=== PATIENT | male | born 1955 | race Caucasian/White ===

== ENCOUNTER 2016-12-03 08:43 | Day surgery (SDC) | payer BC ==
[~2016-12-03] VITALS: Ht 170.2 cm; Wt 83.9 kg
[~2016-12-03 08:43] MED LIST: CIPR-173 PO; CRAN1TAB2 PO; DOCU1CAP31 PO; LORA1TAB12 PO; NORT25CA PO; PERCOT PO; SIMV-8 PO; TAMS0.4C36 PO; VENL150T4 PO
[2016-12-03] MEDS ORDERED: ceFAZolin 1GM/50ML D5W 100 ML IV ONE (09:55)
[2016-12-03] MEDS ORDERED: fentaNYL CITRATE 100 MCG/2 ML VL ONE ×2 (10:42→12:05)
[2016-12-03] MEDS ORDERED: MIDAZOLAM HCL 1MG/1ML-2 ML VIAL ONE (12:05)
[2016-12-03] MEDS ORDERED: GLYCOPYRROLATE 0.2 MG/ML 1ML VIAL IV ONE (12:06)
[2016-12-03] MEDS ORDERED: PROPOFOL 10 MG/ML 20 ML IV ONE (12:06)
[2016-12-03] MEDS ORDERED: ONDANSETRON HCL 4 MG/2 ML VIAL IV ONE ×2 (12:06→13:15)
[2016-12-03] MEDS ORDERED: DEXAMETHASONE SOD PHOS 10MG/1ML VIAL INJ IV ONE (12:06)
[2016-12-03] MEDS ORDERED: HYDROmorphone HCL 2 MG/ML VL IV PRN (13:15)
[2016-12-03 14:22] VITALS: BP 126/68
== END 2016-12-03 14:33 | disposition home or self-care (01) ==
LOC: SUR 08:43
PROVIDERS: ATTEND Urology
DX: N20.1 Calculus of ureter (principal); E78.00 Pure hypercholesterolemia, unspecified
CPT/HCPCS: 50590; J0690; J1100; J2250; J2405; J2704; J3010

== ENCOUNTER 2016-12-13 12:02 | Inpatient (IN) | payer BC ==
[~2016-12-13] VITALS: Ht 170.2 cm; Wt 80.3 kg
[2016-12-13] MEDS ORDERED: SODIUM CHLORIDE 0.9% 1,000 ML IV ONE (12:30)
[2016-12-13] MEDS ORDERED: HYDROmorphone HCL 2 MG/ML VL IV ONE (12:30)
[2016-12-13] MEDS ORDERED: KETOROLAC TROMETH 30 MG/ML 1ML VIAL IV ONE (12:30)
[2016-12-13] MEDS ORDERED: ONDANSETRON HCL 4 MG/2 ML VIAL IV ONE (12:30)
[2016-12-13 12:55] LABS: Basophils # (auto) 0 uL; Basophils % (auto) 0.2 % (0.0-2.0); CONDITION Y; Eosinophils # (auto) 0.1 uL; Eosinophils % (auto) 1.5 % (0.0-7.0); Hemoglobin 14.8 g/dL (13.5-17.5); Lymphocytes # (auto) 1.6 uL; Lymphocytes % (auto) 16.3 % (10.0-50.0); Mean Corpuscular Hemoglobin 30.9 pg (28.0-32.0); Mean Corpuscular Hgb Conc. 34.3 g/dL (32.0-36.0); Mean Platelet Volume 7.7 fL (7.4-10.4); Monocytes # (auto) 0.7 uL; Monocytes % (auto) 7.1 % (0.0-12.0); Neutrophils # (auto) 7.2 uL; Neutrophils % (auto) 74.9 % (37.0-80.0); Platelet Count (auto) 311 10^3/uL (140-450); White Blood Cell 9.6 10^3/uL (4.4-10.8)
[2016-12-13 13:28] LABS: Albumin 3.7 g/dL (3.4-5.0); BUN/Creatinine Ratio 9.6; Calcium 8.4 mg/dL (8.5-10.1)
[2016-12-13 13:31] LABS: Bilirubin, Total 0.5 mg/dL (0.2-1.0); Total Protein 7.2 g/dL (6.4-8.2)
[2016-12-13] MEDS ORDERED: PROMETHAZINE HCL 25 MG/ML 1ML IV PRN (15:30)
[2016-12-13] MEDS ORDERED: cefTRIAXone 1GM/50ML D5W 50 ML IV ONE (15:30)
[2016-12-13] MEDS ORDERED: TEMAZEPAM 15 MG CAP PO PRN (15:30)
[2016-12-13] MEDS ORDERED: LORazepam 0.5 MG TAB PO PRN (15:30)
[2016-12-13] MEDS ORDERED: ACETAMINOPHEN 500 MG TAB PO PRN (15:30)
[2016-12-13] MEDS: SODIUM CHLORIDE 0.9% 1,000 ML IV SCH (15:51)
[2016-12-13] MEDS: MORPHINE SULFATE 4 MG/ML SYRG IV PRN (19:02)
[2016-12-13] MEDS: HYDROcodone-ACET 5/325MG TAB PO PRN (21:25)
[2016-12-13 22:00] VITALS: BP 113/71
[2016-12-14] MEDS ORDERED: MANNITOL FTV 25% 12.5 GM/50 ML 50 ML IV ONE (00:15)
[2016-12-14] MEDS: SODIUM CHLORIDE 0.9% 1,000 ML IV SCH ×3 (00:22→21:04)
[2016-12-14] MEDS: MORPHINE SULFATE 4 MG/ML SYRG IV PRN ×2 (01:10→09:00)
[2016-12-14 05:00] VITALS: BP 128/67
[2016-12-14 08:00] VITALS: BP 116/78
[2016-12-14] MEDS: cefTRIAXone 1GM/50ML D5W 50 ML IV SCH (08:59)
[2016-12-14 11:54] VITALS: BP 118/73
[2016-12-14 17:00] VITALS: BP 113/72
[2016-12-14 20:00] VITALS: BP 133/78
[2016-12-14] MEDS: HYDROmorphone HCL 2 MG/ML VL IV PRN (21:03)
[2016-12-14 22:00] VITALS: BP 133/78
[2016-12-15] MEDS: HYDROcodone-ACET 5/325MG TAB PO PRN (00:06)
[2016-12-15] MEDS: SODIUM CHLORIDE 0.9% 1,000 ML IV SCH ×2 (01:43→18:31)
[2016-12-15] MEDS: HYDROmorphone HCL 2 MG/ML VL IV PRN ×5 (01:52→20:33)
[2016-12-15 04:38] LABS: Urine RBC None Seen /hpf (0 - 3)
[2016-12-15 04:58] LABS: Urine Bilirubin Negative (Negative); Urine Blood Negative /uL (Negative); Urine Color Yellow (Yellow); Urine Glucose Normal (Normal); Urine Ketone Negative (Negative); Urine Nitrite Negative (Negative); Urine Urobilinogen Normal (Negative); Urine pH 6.5 (5.0-8.0)
[2016-12-15 05:00] VITALS: BP 130/86
[2016-12-15 06:35] LABS: INR 0.95 (0.9-1.15); Partial Thromboplastin Time 25.9 sec (22.64-33.71); Prothrombin Time 10.4 sec (9.37-12.3)
[2016-12-15] MEDS ORDERED: IOHEXOL 300 MG/ML 100ML BOTTLE IJ ONE (08:31)
[2016-12-15] MEDS ORDERED: MIDAZOLAM HCL 1MG/1ML-2 ML VIAL ONE (08:42)
[2016-12-15] MEDS ORDERED: fentaNYL CITRATE 100 MCG/2 ML VL ONE (08:42)
[2016-12-15 09:00] VITALS: BP 122/74
[2016-12-15] MEDS: cefTRIAXone 1GM/50ML D5W 50 ML IV SCH (09:00)
[2016-12-15] MEDS ORDERED: PROPOFOL 10 MG/ML 20 ML IV ONE (09:06)
[2016-12-15] MEDS ORDERED: LIDOCAINE HCL 2 %PF INJ 10ML AMP IJ ONE (09:06)
[2016-12-15] MEDS ORDERED: METOCLOPRAMIDE HCL 5MG/ml INJ 2ml VIAL ONE (09:45)
[2016-12-15] MEDS ORDERED: ONDANSETRON HCL 4 MG/2 ML VIAL ONE (09:46)
[2016-12-15] MEDS ORDERED: BELLADONNA ALKAL/OPIUM (16.2/30MG) RECT SUPP PR ONE (10:30)
[2016-12-15] MEDS ORDERED: HYDROmorphone HCL 2 MG/ML VL IV PRN (10:45)
[2016-12-15] MEDS ORDERED: ONDANSETRON HCL 4 MG/2 ML VIAL IV ONE (10:45)
[2016-12-15 11:59] VITALS: BP 134/79
[2016-12-15 17:00] VITALS: BP 125/76
[2016-12-15 20:00] VITALS: BP 148/97
[2016-12-15] MEDS ORDERED: MANNITOL FTV 25% 12.5 GM/50 ML 50 ML IV ONE (21:30)
[2016-12-15] MEDS ORDERED: KETOROLAC TROMETH 60MG/2ML VIAL IM ONE ×2 (21:30→21:50)
[2016-12-15 22:00] VITALS: BP 148/97
[2016-12-16] MEDS: HYDROmorphone HCL 2 MG/ML VL IV PRN ×3 (01:34→12:19)
[2016-12-16] MEDS: SODIUM CHLORIDE 0.9% 1,000 ML IV SCH ×3 (03:30→16:50)
[2016-12-16] MEDS: KETOROLAC TROMETH 30 MG/ML 1ML VIAL IV PRN ×2 (04:00→10:26)
[2016-12-16 05:00] VITALS: BP 127/74
[2016-12-16 09:02] VITALS: BP 133/85
[2016-12-16] MEDS: cefTRIAXone 1GM/50ML D5W 50 ML IV SCH (10:18)
[2016-12-16 12:30] VITALS: BP 143/83
[2016-12-16 17:02] VITALS: BP 141/83
[2016-12-16 17:24] VITALS: BP 141/83
== END 2016-12-16 17:45 | disposition home or self-care (01) | DRG 669 ==
LOC: ER 12:02 → OVERFLOW 12:03 → WEST WING 20:58
PROVIDERS: ADMIT Family Medicine; ATTEND Internal Medicine
PROC: 0TC68ZZ Extirpation of Matter from Right Ureter, Via Natural or Artificial Opening Endoscopic (ICD-10-PCS; 2016-12-15)
PROC: BT1D1ZZ Fluoroscopy of Right Kidney, Ureter and Bladder using Low Osmolar Contrast (ICD-10-PCS; 2016-12-15)
PROC: 0T768DZ Dilation of Right Ureter with Intraluminal Device, Via Natural or Artificial Opening Endoscopic (ICD-10-PCS; principal; 2016-12-15 09:31)
DX: N13.2 Hydronephrosis with renal and ureteral calculous obstruction (principal); I25.10 Atherosclerotic heart disease of native coronary artery without angina pectoris; K42.9 Umbilical hernia without obstruction or gangrene; N40.0 Benign prostatic hyperplasia without lower urinary tract symptoms; Z89.432 Acquired absence of left foot
CPT/HCPCS: 36415; 71010; 74000; 74176; 76000; 80053; 81001; 82360; 85025; 85610; 85730; 86850; 86900; 86901; 87081; 87086; 93005; 96361; 96365; 96375; J0696; J1885; J2250; J2405; J2704